=== PATIENT | female | born 1990 | race African-American/Black ===

== ENCOUNTER 2021-10-21 23:01 | Emergency (ER) | payer OTHER ==
[~2021-10-21] VITALS: Ht 157.5 cm; Wt 82.6 kg
--- NOTE | 2021-10-21 23:32 | NUR ---
Dr. Goodwin at bedside for MSE.
--- NOTE | 2021-10-21 23:32 | NUR ---
pt ambulated to room 4a c/o hernia pain.
[2021-10-21] MEDS ORDERED: ONDANSETRON ODT 4 MG TAB.RAPDIS SL ONE (23:45)
[2021-10-21] MEDS ORDERED: ONDANSETRON ODT 4 MG TAB.RAPDIS ONE (23:45)
[2021-10-21] MEDS ORDERED: OXYCODONE/APAP 5-325 MG TABLET PO ONE (23:45)
[2021-10-21] MEDS ORDERED: OXYCODONE/APAP 5-325 MG TABLET ONE (23:46)
[2021-10-22 00:04] LABS: HEMATOCRIT 41.1 % (31.2-41.9); MEAN CORPUSCULAR HEMOGLOBIN 29.9 uug (24.7-32.8); MEAN CORPUSCULAR VOLUME 90.3 fL (75.5-95.3); PLATELET COUNT (AUTO) 369 K/uL (179-408)
[2021-10-22 00:05] LABS: *URINE HCG, QUAL POSITIVE (NEGATIVE)
[2021-10-22 00:06] LABS: POTASSIUM 3.3 mmol/L (3.5-5.1)
[2021-10-22 00:11] LABS: BILIRUBIN,DIRECT 0.1 mg/dL (0.0-0.2); BILIRUBIN,TOTAL 0.6 mg/dL (0.2-1.0); TOTAL PROTEIN, SERUM 8.2 g/dL (6.4-8.2)
--- NOTE | 2021-10-22 01:28 | NUR ---
Patient discharged to home in stable condition. Written and verbal after care instructions given. Patient verbalizes understanding of instructions. Stressed follow up or return to ER for worsening s/s.
[2021-10-22 01:30] VITALS: BP 120/80
== END 2021-10-22 01:31 | disposition home or self-care (01) ==
LOC: ER 23:06
DX: O26.891 Other specified pregnancy related conditions, first trimester (principal); Z3A.00 Weeks of gestation of pregnancy not specified; R10.9 Unspecified abdominal pain; O99.331 Smoking (tobacco) complicating pregnancy, first trimester; F17.200 Nicotine dependence, unspecified, uncomplicated
CPT/HCPCS: 36415; 83690; 84703; 85025; A4663; Q0162

== ENCOUNTER 2021-10-24 18:24 | Emergency (ER) | payer OTHER ==
[~2021-10-24] VITALS: Ht 157.5 cm; Wt 85.3 kg
--- NOTE | 2021-10-24 20:10 | NUR ---
Patient walked in by ED c/o several abdominal cramps for 1 week, vaginal bleeding x 1 day.
--- NOTE | 2021-10-24 20:12 | NUR ---
Urine taken and sent to lab.
--- NOTE | 2021-10-24 20:20 | NUR ---
Seen and examined by Dr Avina for MSE.
[2021-10-24] MEDS ORDERED: MORPHINE SULFATE 4 MG/1 ML DISP.SYRIN ONE (20:28)
[2021-10-24] MEDS: MORPHINE SULFATE 4 MG/1 ML DISP.SYRIN IM ONE (20:35)
[2021-10-24 20:40] LABS: MEAN CORPUSCULAR HEMOGLOBIN 29.6 uug (24.7-32.8); MEAN CORPUSCULAR VOLUME 90.7 fL (75.5-95.3); PLATELET COUNT (AUTO) 386 K/uL (179-408)
[2021-10-24 20:50] LABS: BILIRUBIN,DIRECT 0.1 mg/dL (0.0-0.2); BILIRUBIN,TOTAL 0.4 mg/dL (0.2-1.0); CREATININE 0.9 mg/dL (0.6-1.3); POTASSIUM 3.7 mmol/L (3.5-5.1); TOTAL PROTEIN, SERUM 7.8 g/dL (6.4-8.2)
[2021-10-24 20:55] LABS: *BILIRUBIN,URIN NEGATIVE (NEGATIVE); *BLOOD, URINE 2+ (NEGATIVE); *CLARITY,URINE CLOUDY (CLEAR); *COLOR,URINE YELLOW (YELLOW); *KETONES,URINE NEGATIVE (NEGATIVE); *UROBILINOGEN,URINE 0.2 E.U./dl (NORMAL); LEUKOCYTE ESTERASE ,URINE NEGATIVE (NEGATIVE); NITRITE, URINE NEGATIVE (NEGATIVE); PH,URINE 7.5 (5.0-8.0); UGLUCOSE NEGATIVE (NEGATIVE)
[2021-10-24 21:06] LABS: BACTERIA,URINE FEW /HPF (NONE SEEN); RBC,URINE 20-50 /HPF (0-3); SQUAMOUS EPITHELIAL CELL,UR MANY /HPF (NONE SEEN); URINE AMORPHOUS PHOSPHATES MANY /HPF
--- NOTE | 2021-10-24 21:44 | NUR ---
US tech at bedside.
--- NOTE | 2021-10-24 22:59 | NUR ---
Accompanied Dr Avina for pelvic exam.
[2021-10-25 00:04] VITALS: BP 110/70
--- NOTE | 2021-10-25 00:05 | NUR ---
Patient discharged to home via private vehicle in stable condition. VSS. NAD. Ambulatory with steady gait. Written and verbal after care instructions given. Patient verbalizes understanding of instructions. Stressed follow up or return to ER for worsening s/s.
== END 2021-10-25 00:06 | disposition home or self-care (01) ==
LOC: ER 18:24
DX: O03.9 Complete or unspecified spontaneous abortion without complication (principal); D72.829 Elevated white blood cell count, unspecified
CPT/HCPCS: 99284; 76856; 80076; 80048; 81001; 85025; 86850; 86900; 86901; 84702; 36415; 96372; J2270; A4663